=== PATIENT | female | born 1990 | race Caucasian/White ===

== ENCOUNTER 2016-12-25 11:15 | Emergency (ER) | payer SELFPAY ==
[~2016-12-25] VITALS: Ht 157.5 cm; Wt 90.7 kg
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
--- NOTE | 2016-12-25 12:35 | NUR ---
DAWN YUN AT BEDSIDE FOR EVAL.
[2016-12-25] MEDS ORDERED: ACETAMINOPHEN 325 MG TABLET ONE (12:52)
--- NOTE | 2016-12-25 12:56 | NUR ---
Patient discharged to home in stable condition. Written and verbal after care instructions given. Patient verbalizes understanding of instruction.
[2016-12-25 12:57] VITALS: BP 129/77
[2016-12-25] MEDS ORDERED: ACETAMINOPHEN 325 MG TABLET PO ONE (13:00)
== END 2016-12-25 12:57 | disposition home or self-care (01) ==
LOC: ER 11:20
DX: S13.4XXA Sprain of ligaments of cervical spine, initial encounter (principal); S23.3XXA Sprain of ligaments of thoracic spine, initial encounter; V43.52XA Car driver injured in collision with other type car in traffic accident, initial encounter; Y93.89 Activity, other specified; Y92.410 Unspecified street and highway as the place of occurrence of the external cause; Y99.8 Other external cause status
CPT/HCPCS: 99282; A4606; Z7610